=== PATIENT | male | born 1965 | race Caucasian/White ===

== ENCOUNTER 2016-10-04 16:00 | Emergency (ER) | payer OTHER ==
[2016-10-04] MEDS ORDERED: DIPH,PERTUS(ACELL)TETVAC-LF 0.5 ML VIAL IM ONE (17:05)
--- NOTE | 2016-10-04 17:10 | ED ---
Skin/Abscess/FB HPI - General Chief complaint: Skin/Abscess/Foreign Body Stated complaint: Nail through R hand Time Seen by Provider: 10/04/16 17:01 Source: patient, RN notes reviewed Mode of arrival: ambulatory Limitations: no limitations - History of Present Illness Initial comments: 51-year-old male presents emergency Department chief complaint nail in right hand. Patient states he was framing a wall states that it ricocheted through his right hand digits 2 and 3. Patient states he believes his last tetanus was over 5 years ago or longer. Patient denies any paresthesias of his digits. Patient is unable move the second third digit secondary to pain. He did attempt pulled up was was unsuccessful. Patient denies any discoloration to his fingers and offers no other complaints at this time. - Related Data Previous Rx's Medication Instructions Recorded Cephalexin [Keflex] 500 mg PO Q6HR #40 cap 10/04/16 Allergies Allergy/AdvReac Type Severity Reaction Status Date / Time Penicillins Allergy Rapid Verified 10/04/16 17:16 Heart Rate Review of Systems ROS Statement: Those systems with pertinent positive or pertinent negative responses have been documented in the HPI. ROS Other: All systems not noted in ROS Statement are negative. Past Medical History Past Medical History: No Reported History History of Any Multi-Drug Resistant Organisms: None Reported Past Surgical History: No Surgical Hx Reported Past Psychological History: No Psychological Hx Reported Smoking Status: Never smoker Past Alcohol Use History: None Reported Past Drug Use History: None Reported General Exam Limitations: no limitations General appearance: alert, in no apparent distress Respiratory exam: Present: normal lung sounds bilaterally. Absent: respiratory distress, wheezes, rales, rhonchi, stridor Cardiovascular Exam: Present: regular rate, normal rhythm, normal heart sounds. Absent: systolic murmur, diastolic murmur, rubs, gallop, clicks Extremities exam: Present: other (Right hand there is nail that enters second digit and exits through the third digit on the dorsal aspect of the fingers there is no active bleeding there is no discoloration of digits 2 and 3 Refill less than 2 seconds patient has full sensation) Course Vital Signs 10/04/16 16:25 Temperature 98.6 F Pulse Rate 78 Respiratory 20 Rate Blood Pressure 126/78 O2 Sat by Pulse 96 Oximetry Procedures - Procedures Initial comment: Foreign body removal right hand: 8 mL of 1% lidocaine without epinephrine were used to anesthetize the second third digit at the entrance and exit wound out the nail. This should give him complete relief of the pain and pliers were used to remove the nail with no compilations there is minimal venous ooze. The hand was soaked and thoroughly rinsed out with 1 L of saline. Medical Decision Making - Medical Decision Making 51-year-old male presented for foreign body right hand. This was removed no compilations. Patient we discharge on antibiotics. Patient will follow up outpatient with's comp. Return parameters were discussed. Disposition Clinical Impression: Injury of right hand by nail gun Disposition: HOME SELF-CARE Condition: Stable Instructions: Soft Tissue Foreign Body (ED) Additional Instructions: Please return to the Emergency Department if symptoms worsen or any other concerns. Prescriptions: Cephalexin [Keflex] 500 mg PO Q6HR #40 cap Referrals: Fartun Park MD [Primary Care Provider] - 1-2 days Time of Disposition: 17:43
--- NOTE | 2016-10-04 17:38 | XR ---
EXAMINATION TYPE: XR hand complete RT DATE OF EXAM: 10/04/2016 COMPARISON: NONE HISTORY: Foreign body TECHNIQUE: 3 views FINDINGS: There is a large metal nail foreign body projected in the soft tissues on the dorsum of the proximal phalanges of the second third and fourth digits. I see no fracture. There is cystic change in the scaphoid consistent with old fracture. IMPRESSION: Large nail foreign body in the posterior soft tissues of the second and third and fourth digits as above. I do not see an acute fracture.
[2016-10-04] MEDS ORDERED: CEPHALEXIN 500 MG CAP PO STA (17:43)
--- NOTE | 2016-10-04 17:45 | XR ---
EXAMINATION TYPE: XR hand limited RT DATE OF EXAM: 10/04/2016 COMPARISON: Today HISTORY: Nail removal TECHNIQUE: 2 views FINDINGS: I see no fracture nor dislocation. There is mild soft tissue swelling over the dorsum of th e MP joints. There is been removal of the nail foreign body. IMPRESSION: Old scaphoid fracture with cystic change. Nail foreign body has been removed. No acute fr acture.
[2016-10-04 17:49] VITALS: RESP 16; TEMP 98
[2016-10-04 18:09] VITALS: BP 161/93; PULSE 65
== END 2016-10-04 18:15 | disposition home or self-care (01) ==
LOC: EC 16:00
DX: S61.441A Puncture wound with foreign body of right hand, initial encounter (principal); Z23 Encounter for immunization; W45.0XXA Nail entering through skin, initial encounter; Y92.69 Other specified industrial and construction area as the place of occurrence of the external cause
CPT/HCPCS: 90471; 90715; 99283

== ENCOUNTER → 2017-05-31 | Outpatient (CLI) | payer BC ==
[2017-05-31 09:17] LABS: Basophils % (A) 1 %; Eosinophils # (A) 0.2 k/uL (0-0.7); Eosinophils % (A) 3 %; HCT 46.7 % (39.0-53.0); HGB 15.5 gm/dL (13.0-17.5); Lymphocytes # (A) 1.5 k/uL (1.0-4.8); Lymphocytes % (A) 24 %; MCH 34.2 pg (25.0-35.0); MCHC 33.2 g/dL (31.0-37.0); MCV 102.7 fL (80.0-100.0); Macrocytosis Slight; Mean Platelet Volume 6.8; Monocytes # (A) 0.5 k/uL (0-1.0); Monocytes % (A) 7 %; Neutrophils # (A) 4.1 k/uL (1.3-7.7); Neutrophils % (A) 64 %; Platelet Count 250 k/uL (150-450); RBC 4.55 m/uL (4.30-5.90); RDW 12.4 % (11.5-15.5); WBC 6.4 k/uL (3.8-10.6)
[2017-05-31 10:36] LABS: ALT 30 U/L (21-72); AST 26 U/L (17-59); Albumin 4.1 g/dL (3.5-5.0); Alkaline Phosphatase 76 U/L (38-126); Anion Gap 5 mmol/L; Blood Urea Nitrogen 17 mg/dL (9-20); Calcium 9.8 mg/dL (8.4-10.2); Carbon Dioxide 28 mmol/L (22-30); Chloride 107 mmol/L (98-107); Cholesterol 205 mg/dL (<200); Glucose 103 mg/dL (74-99); HDL Cholesterol 42 mg/dL (40-60); LDL Cholesterol,Calculated 143 mg/dL (0-99); Potassium 4.8 mmol/L (3.5-5.1); Sodium 140 mmol/L (137-145); Total Bilirubin 0.5 mg/dL (0.2-1.3); Total Protein 7.1 g/dL (6.3-8.2); Triglycerides 100 mg/dL (<150); Uric Acid 5.6 mg/dL (3.5-8.5)
== END | disposition home or self-care (01) ==
LOC: LABWHC1 08:24
PROVIDERS: ATTEND Family Medicine
DX: M24.671 Ankylosis, right ankle (principal); M17.11 Unilateral primary osteoarthritis, right knee; R21 Rash and other nonspecific skin eruption; R71.8 Other abnormality of red blood cells; Z13.220 Encounter for screening for lipoid disorders
CPT/HCPCS: 36415; 80053; 80061; 82306; 82607; 82747; 83735; 84153; 84443; 84550; 85025